=== PATIENT | female | born 1965 | race Caucasian/White ===

== ENCOUNTER → 2016-06-05 | Outpatient (CLI) | payer OTHER ==
[~2016-06-05] MED LIST: GADOBUTROL 10 ML VIAL IVP ONE
== END ==
LOC: FIMAGING 13:32
DX: D33.3 Benign neoplasm of cranial nerves (principal); R93.0 Abnormal findings on diagnostic imaging of skull and head, not elsewhere classified
CPT/HCPCS: A9585

== ENCOUNTER → 2016-09-30 | Outpatient (CLI) | payer OTHER | LOC: FIMAGING 12:32 | PROVIDERS: ATTEND Obstetrics & Gynecology | DX: Z12.31 Encounter for screening mammogram for malignant neoplasm of breast (principal) | CPT/HCPCS: G0202 ==

== ENCOUNTER 2016-12-26 20:56 | Emergency (ER) | payer OTHER ==
[2016-12-26 21:07] VITALS: TEMP 97.7
--- NOTE | 2016-12-26 21:19 | CPEKG ---
Heart Rate: 69 RR Interval: 870 P-R Interval: 196 QRSD Interval: 100 QT Interval: 424 QTC Interval: 455 P Lawrence: 78 QRS Lawrence: 83 T Wave Lawrence: 28 EKG Severity - NORMAL ECG - EKG Impression: SINUS RHYTHM Electronically Signed By: Pau Guajardo 26-Dec-2016 23:23:09
--- NOTE | 2016-12-26 21:20 | EDPHY ---
H & P Stated Complaint: sides of chest and thoracic pain few days HPI/ROS: CHIEF COMPLAINT: Chest and upper back pain HISTORY OF PRESENT ILLNESS: The patient is a 51 y/o female with a history of asthma complaining of chest and upper back muscular pain since Thursday, 2 days ago. She returned from [place] on 11/15/16, 1 month ago. Her roommate in [place] was admitted to an ICU for pneumonia on 11/18/16. She describes pain located in her back and the sides of her chest. When she wakes up, she coughs and feels like she needs to clear her lungs, which is abnormal for her. She only uses her albuterol inhaler as needed, but has used it more frequently this past week. She is still feeling the pain in the back of her chest. Took Advil this morning for the pain. Denies sputum with cough, fever, pain with breathing, pain in front of chest, pedal edema or other pertinent symptoms. REVIEW OF SYSTEMS: A ten point review of systems was performed and is negative with the exception of the items mentioned in the HPI. Past medical history: Asthma Seizure (1986) Past surgical history: Cholecystectomy ACL repair Family history: Grandfather from heart attack at 56 Father has hypertension and Parkinson's Mother has hypercholesteremia Social history: Lives in [place] Nonsmoker General Appearance: Alert. Vital signs reviewed. Eyes: Pupils equal and round, no conjunctival injection, no discharge. Anicteric. ENT, Mouth: Mucous membranes are moist, no oropharyngeal erythema or edema. Neck: No lymphadenopathy, supple. Respiratory: Lungs are clear to auscultation; no wheezes, rales, or rhonchi. Cardiovascular: Regular rate and rhythm; no murmur, rub, or gallop. Gastrointestinal: Abdomen is soft and nontender, no masses or organomegaly, bowel sounds normal. Skin: Warm and dry, no rashes on exposed skin, normal color. Back: Nontender to palpation over the thoracolumbar spine. No CVAT. Extremities: No lower extremity edema, no calf tenderness or swelling. Neurological: Alert and oriented. Moving all four extremities easily and equally. Psychiatric: Normal affect. - Personal History LMP (Females 10-55): Post Menopausal Current Tetanus/Diphtheria Vaccine: Unsure Current Tetanus Diphtheria and Acellular Pertussis (TDAP): Unsure - Medical/Surgical History Hx Asthma: Yes Hx Chronic Respiratory Disease: No Hx Diabetes: No Hx Cardiac Disease: No Hx Renal Disease: No Hx Cirrhosis: No Hx Alcoholism: No Hx HIV/AIDS: No Hx Splenectomy or Spleen Trauma: No Other PMH: gallbladder. acl repair - Social History Smoking Status: Never smoked Constitutional: Initial Vital Signs Temperature (C) 36.5 C 12/26/16 21:01 Heart Rate 73 12/26/16 21:01 Respiratory Rate 18 12/26/16 21:01 Blood Pressure 119/78 12/26/16 21:01 O2 Sat (%) 98 12/26/16 21:01 O2 Delivery Mode Room Air Allergies/Adverse Reactions: No Known Allergies Allergy (Unverified 12/26/16 21:01) Home Medications: Medication Instructions Recorded Tegretol Xr 12/26/16 Medical Decision Making - Diagnostics Imaging: I viewed and interpreted images myself ED Course/Re-evaluation: The patient is a 51 y/o female presenting with non-reproducible mid-thoracic pain that radiates to the sides of her chest since Thursday, 2 days ago. Her physical exam is normal. 2115: The 12 lead EKG was interpreted by myself as sinus rhythm with a rate of 69. See hard copy and/or "tracemaster" electronic copy for interpretation. She has normal EKG, CBC, BMP, d dimer, and troponin. I think the likelihood of ACS with a negativew troponin after two days of pain is negligible. HEART score is zero. Risk for PE low based on Wells Rule. Nothing on exam to suggest pneumonia. Pericarditis not seen on EKG, no rub on exam. This pain is likely musculoskeletal. Reassurance provided. 2216: Reassessed patient and discussed laboratory and imaging findings. Return precautions provided; patient is comfortable with this plan. - Data Points Laboratory Results: Laboratory Results 12/26/16 21:23 12/26/16 21:23 Medications Given: Discontinued Medications Aspirin (Aspirin) 324 mg PO EDNOW ONE Stop: 12/26/16 21:34 Last Admin: 12/26/16 22:15 Dose: 324 mg Departure - Departure Disposition: Home, Routine, Self-Care Clinical Impression: Musculoskeletal chest pain Condition: Good Instructions: Musculoskeletal Pain (ED) Additional Instructions: We did not find any signs of a heart attack or blood clot. Follow up with your primary care provider in the next week for unimproved symptoms. Please return to the Emergency Department immediately for any recurrent chest pain, difficulty breathing or other concerns. Referrals: Louie Estrada MD [Primary Care Provider] - As per Instructions Report Scribed for: Pau Guajardo Report Scribed by: Claire Bazan Date of Report: 12/26/16 Time of Report: 21:37 Physician Review and Approval Statement: 12/26/16 21:20 Portions of this note were transcribed by the site medical director. I, Dr. Pau Guajardo, personally performed the history, physical exam, and medical decision- making; and confirmed the accuracy of the information in the transcribed note.
[2016-12-26] MEDS ORDERED: ASPIRIN 81 MG CHEWABLE TAB PO ONE (21:33)
[2016-12-26 21:40] LABS: % IMMATURE GRANULYOCYTES 0.3 % (0.0-1.1); ABSOLUTE IMMATURE GRANULOCYTES 0.02 10^3/uL (0.00-0.10); ADD DIFF? NO; ADD MORPH? NO; ADD SCAN? NO; ATYPICAL LYMPHOCYTE FLAG 10 (0-99); FRAGMENT RBC FLAG 0 (0-99); HEMATOCRIT 40.3 % (38.0-47.0); HEMOGLOBIN 14.4 g/dL (12.6-16.3); LEFT SHIFT FLG 0 (0-99); LIPEMIA HEMOLYSIS FLAG 90 (0-99); MEAN CELL HEMOGLOBIN 32.4 pg (27.9-34.1); MEAN CELL HEMOGLOBIN CONCENTR. 35.7 g/dL (32.4-36.7); MEAN CELL VOLUME 90.6 fL (81.5-99.8); MEAN PLATELET VOLUME 8.7 fL (8.7-11.7); PLATELET CLUMPS FLAG 0 (0-99); PLATELET COUNT 169 10^3/uL (150-400); RED BLOOD CELL COUNT 4.45 10^6/uL (4.18-5.33); RED CELL DISTRIBUTION WIDTH 12.6 % (11.5-15.2)
[2016-12-26 21:51] LABS: ANION GAP 13 mEq/L (8-16); CALCIUM 9.2 mg/dL (8.5-10.4); CARBON DIOXIDE 25 mEq/l (22-31); CHLORIDE 102 mEq/L (97-110); CREATININE 0.9 mg/dL (0.6-1.0); GLOMERULAR FILTRATION RATE > 60; GLUCOSE 95 mg/dL (70-100); POTASSIUM 3.6 mEq/L (3.5-5.2); SODIUM 140 mEq/L (134-144)
[2016-12-26 22:03] LABS: TROPONIN I < 0.012 ng/mL (0.000-0.034)
[2016-12-26 22:43] VITALS: BP 123/79; PULSE 75; RESP 16; O2SAT 97
== END 2016-12-26 22:42 | disposition home or self-care (01) ==
DX: R07.9 Chest pain, unspecified (principal); J45.909 Unspecified asthma, uncomplicated